=== PATIENT | male | born 1970 | race Caucasian/White ===

== ENCOUNTER 2018-02-22 20:27 | Emergency (ER) | payer BC ==
--- NOTE | 2018-02-22 20:56 | ERPHSYRPT ---
- History of Present Illness Time Seen by Provider: 02/22/18 20:42 Source: patient Exam Limitations: no limitations Patient Subjective Stated Complaint: pt is alert and oriented. pt is ambulatory. pt was brought in walking with a steady gait by law enforcement. he was driving and pulled over and blew 0.307. brought in for medical clearance. lung sounds clear. bowel sounds present x4. Triage Nursing Assessment: see above Physician History: 47-year-old white male brought by [facility] for medical clearance. Patient apparently blew greater than 0.3 on breathalyzer. Patient admits to drinking 12-13 beers. Denies illicit drug use. Past medical history denies. Past surgical history denies. Timing/Duration: today Severity: mild Modifying Factors: Improves With: nothing Associated Symptoms: No nausea, No vomiting, No abdominal pain, No shortness of breath, No heartburn, No diaphoresis, No cough, No chills, No chest pain, No fever, No headaches, No loss of appetite, No malaise, No rash, No syncope, No seizure, No weakness Allergies/Adverse Reactions: Penicillins Allergy (Verified 02/22/18 20:38) Hx Tetanus, Diphtheria Vaccination/Date Given: Yes Hx Influenza Vaccination/Date Given: No Hx Pneumococcal Vaccination/Date Given: No Immunizations Up to Date: Yes - Review of Systems Constitutional: No Fever, No Chills Eyes: No Symptoms Ears, Nose, & Throat: No Symptoms Respiratory: No Cough, No Dyspnea Cardiac: No Chest Pain, No Edema, No Syncope Abdominal/Gastrointestinal: No Abdominal Pain, No Nausea, No Vomiting, No Diarrhea Genitourinary Symptoms: No Dysuria Musculoskeletal: No Back Pain, No Neck Pain Skin: No Rash Psychological: Other (admits to drinking 12-13 beers today) Endocrine: No Symptoms All Other Systems: Reviewed and Negative - Past Medical History Pertinent Past Medical History: No - Past Surgical History Past Surgical History: No - Social History Smoking Status: Never smoker Drug Use: none - Nursing Vital Signs Nursing Vital Signs: Initial Vital Signs Temperature 98.0 F 02/22/18 20:30 Pulse Rate 119 H 02/22/18 20:30 Respiratory Rate 16 02/22/18 20:30 Blood Pressure 175/118 02/22/18 20:30 O2 Sat by Pulse Oximetry 95 02/22/18 20:30 Pain Scale Pain Intensity 0 - Physical Exam General Appearance: no apparent distress Eye Exam: PERRL/EOMI, eyes nml inspection Ears, Nose, Throat Exam: normal ENT inspection, TMs normal, pharynx normal, moist mucous membranes Neck Exam: normal inspection, non-tender, supple, full range of motion Respiratory Exam: normal breath sounds, lungs clear, No respiratory distress Cardiovascular Exam: regular rate/rhythm, normal heart sounds, normal peripheral pulses Gastrointestinal/Abdomen Exam: soft, normal bowel sounds, No tenderness, No mass Back Exam: normal inspection, normal range of motion, No CVA tenderness, No vertebral tenderness Extremity Exam: normal inspection, normal range of motion, pelvis stable Neurologic Exam: alert, oriented x 3, cooperative, 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 as tested, normal mood/affect, nml cerebellar function, nml station & gait, sensation nml, No motor deficits Skin Exam: normal color, warm, dry, No rash Lymphatic Exam: No adenopathy SpO2 Interpretation: normal (95%) SpO2: 95 Oxygen Delivery: Room Air - Course Nursing assessment & vital signs reviewed: Yes Ordered Tests: Active Orders 24 hr Category Date Time Status EKG-ER Only STAT Care 02/22/18 20:50 Active IV Insertion STAT Care 02/22/18 22:08 Active ACETAMINOPHEN Stat Lab 02/22/18 21:04 Completed CBC W DIFF Stat Lab 02/22/18 21:04 Completed CMP Stat Lab 02/22/18 21:04 Completed ETHYL ALCOHOL Stat Lab 02/22/18 21:04 Completed SALICYLATE Stat Lab 02/22/18 21:04 Completed UA W/RFX UR CULTURE Stat Lab 02/22/18 21:28 Completed Urine Triage Profile Stat Lab 02/22/18 21:28 Completed Medication Summary Generic Name Dose Route Start Last Admin Trade Name Freq PRN Reason Stop Dose Admin Sodium Chloride 1,000 mls @ 999 mls/hr 02/22/18 22:08 02/22/18 22:23 Sodium Chloride 0.9% 1000 Ml IV 02/22/18 23:08 Not Given .Q1H1M STA Discontinued Medications Generic Name Dose Route Start Last Admin Trade Name Freq PRN Reason Stop Dose Admin Sodium Chloride Confirm 02/22/18 22:09 Sodium Chloride 0.9% 1000 Ml Administered 02/22/18 22:10 Dose 1,000 mls @ ud .ROUTE .STK-MED ONE Thiamine HCl 100 mg 02/22/18 22:08 02/22/18 22:23 Thiamine 200 Mg/2 Ml IV 02/22/18 22:09 Not Given STAT ONE Lab/Rad Data: Laboratory Result Diagrams 02/22/18 21:04 02/22/18 21:04 Laboratory Results 02/22/18 02/22/18 02/22/18 Range/Units 21:28 21:28 21:04 WBC (4.0-10.5) K/mm3 RBC (4.1-5.6) M/mm3 Hgb (12.5-18.0) gm/dl Hct (42-50) % MCV (78-100) fl MCH (26-32) pg MCHC (32-36) g/dl RDW (11.5-14.0) % Plt Count (150-450) K/mm3 MPV (6-9.5) fl Gran % (36.0-66.0) % Eos # (Auto) (0-0.5) Absolute Lymphs (auto) (1.0-4.6) Absolute Monos (auto) (0.0-1.3) Lymphocytes % (24.0-44.0) % Monocytes % (0.0-12.0) % Eosinophils % (0.00-5.0) % Basophils % (0.0-0.4) % Absolute Granulocytes (1.4-6.9) Basophils # (0-0.4) Sodium (137-145) mmol/L Potassium (3.5-5.1) mmol/L Chloride (98-107) mmol/L Carbon Dioxide (22-30) mmol/L Anion Gap (5-15) MEQ/L BUN (9-20) mg/dL Creatinine (0.66-1.25) mg/dL Estimated GFR ML/MIN Glucose (74-106) mg/dL Calcium (8.4-10.2) mg/dL Total Bilirubin (0.2-1.3) mg/dL AST (17-59) U/L ALT (0-50) U/L Alkaline Phosphatase (38-126) U/L Serum Total Protein (6.3-8.2) g/dL Albumin (3.5-5.0) g/dL Ur Collection Type VOID Urine Color LT.YELLOW (YELLOW) Urine Appearance CLEAR (CLEAR) Urine pH 5.0 (5-6) Ur Specific [place] 1.010 (1.005-1.025) Urine Protein NEGATIVE (Negative) Urine Ketones NEGATIVE (NEGATIVE) Urine Blood NEGATIVE (0-5) Julio/ul Urine Nitrite NEGATIVE (NEGATIVE) Urine Bilirubin NEGATIVE (NEGATIVE) Urine Urobilinogen NORMAL (0-1) mg/dL Ur Leukocyte Esterase NEGATIVE (NEGATIVE) Urine Culture Reflexed NO (NO) Urine Glucose NEGATIVE (NEGATIVE) mg/dL Salicylates (2-20) mg/dL Urine Opiates Level NEGATIVE (NEGATIVE) Ur Methadone NEGATIVE (NEGATIVE) Acetaminophen (10-30) ug/ml Urine Barbiturates NEGATIVE (NEGATIVE) Ur Phencyclidine (PCP) NEGATIVE (NEGATIVE) Urine Amphetamine NEGATIVE (NEGATIVE) U Benzodiazepine Level NEGATIVE (NEGATIVE) Urine Cocaine NEGATIVE (NEGATIVE) Urine Marijuana (THC) NEGATIVE (NEGATIVE) Ethyl Alcohol 381 H (0-10) mg/dL Specimen Received 02/22/18 2130 02/22/18 02/22/18 Range/Units 21:04 21:04 WBC 7.0 (4.0-10.5) K/mm3 RBC 4.53 (4.1-5.6) M/mm3 Hgb 12.1 L (12.5-18.0) gm/dl Hct 36.8 L (42-50) % MCV 81.2 (78-100) fl MCH 26.7 (26-32) pg MCHC 32.9 (32-36) g/dl RDW 14.4 H (11.5-14.0) % Plt Count 305 (150-450) K/mm3 MPV 10.1 H (6-9.5) fl Gran % 38.8 (36.0-66.0) % Eos # (Auto) 0.23 (0-0.5) Absolute Lymphs (auto) 3.56 (1.0-4.6) Absolute Monos (auto) 0.46 (0.0-1.3) Lymphocytes % 50.9 H (24.0-44.0) % Monocytes % 6.6 (0.0-12.0) % Eosinophils % 3.3 (0.00-5.0) % Basophils % 0.4 (0.0-0.4) % Absolute Granulocytes 2.71 (1.4-6.9) Basophils # 0.03 (0-0.4) Sodium 139 (137-145) mmol/L Potassium 4.3 (3.5-5.1) mmol/L Chloride 100 (98-107) mmol/L Carbon Dioxide 24 (22-30) mmol/L Anion Gap 19.9 H (5-15) MEQ/L BUN 11 (9-20) mg/dL Creatinine 0.78 (0.66-1.25) mg/dL Estimated GFR > 60.0 ML/MIN Glucose 100 (74-106) mg/dL Calcium 8.5 (8.4-10.2) mg/dL Total Bilirubin 0.90 (0.2-1.3) mg/dL AST 23 (17-59) U/L ALT 15 (0-50) U/L Alkaline Phosphatase 136 H (38-126) U/L Serum Total Protein 7.1 (6.3-8.2) g/dL Albumin 4.4 (3.5-5.0) g/dL Ur Collection Type Urine Color (YELLOW) Urine Appearance (CLEAR) Urine pH (5-6) Ur Specific [place] (1.005-1.025) Urine Protein (Negative) Urine Ketones (NEGATIVE) Urine Blood (0-5) Julio/ul Urine Nitrite (NEGATIVE) Urine Bilirubin (NEGATIVE) Urine Urobilinogen (0-1) mg/dL Ur Leukocyte Esterase (NEGATIVE) Urine Culture Reflexed (NO) Urine Glucose (NEGATIVE) mg/dL Salicylates < 1.0 L (2-20) mg/dL Urine Opiates Level (NEGATIVE) Ur Methadone (NEGATIVE) Acetaminophen < 10 L (10-30) ug/ml Urine Barbiturates (NEGATIVE) Ur Phencyclidine (PCP) (NEGATIVE) Urine Amphetamine (NEGATIVE) U Benzodiazepine Level (NEGATIVE) Urine Cocaine (NEGATIVE) Urine Marijuana (THC) (NEGATIVE) Ethyl Alcohol (0-10) mg/dL Specimen Received - Progress Progress: improved Progress Note: 02/22/18 20:55 This is a 47-year-old white male brought by the [facility] with complaints of elevated breath alcohol test. Patient is alert he is oriented unfortunately her blood pressure on the patient is 175/118. Will go ahead and obtain basic workup including CBC CMP UDS blood alcohol level EKG. 02/22/18 22:[id number] white male brought by the [facility] with complaint of elevated breath alcohol test. Patient was noted to have a blood pressure of 175/118 on arrival. Labs including CBC CMP blood alcohol level salicylate level acetaminophen level are ordered. UDS is ordered. EKG was ordered. Patient refused EKG. IV normal saline was ordered for the patient 1 L. Thiamine 100 mg IV was ordered. Patient refused IV normal saline, patient refused thiamine. Patient in no acute distress blood pressure is stable blood pressure now 139/80. Unfortunately blood alcohol level is 380 however patient is alert oriented and in no acute distress. He is demanding to sign AMA for iv fluids and thiamine. Will go ahead and sign patient out AMA patient is stable for group home. 02/22/18 22:31 - Departure Time of Disposition: 22:27 Departure Disposition: Home Clinical Impression: Alcohol intoxication Qualifiers: Complication of substance-induced condition: uncomplicated Qualified Code(s): F10.920 - Alcohol use, unspecified with intoxication, uncomplicated Condition: Fair Critical Care Time: No Referrals: MERLIN LIU [Primary Care Provider] - Additional Instructions: Return home. No driving. Do not drink any more alcohol tonight. Follow-up with your family doctor. Return for acute distress or for severe symptoms.
[2018-02-22 21:07] LABS: BASOPHIL % 0.4 % (0.0-0.4); Basophil (Absolute #) 0.03 (0-0.4); Eosinophil % 3.3 % (0.00-5.0); Eosinophil (Absolute #) 0.23 (0-0.5); Granulocyte Absolute (ANC) 2.71 (1.4-6.9); Granulocytes % 38.8 % (36.0-66.0); Hematocrit 36.8 % (42-50); Hemoglobin 12.1 gm/dl (12.5-18.0); Lymphocyte (Absolute #) 3.56 (1.0-4.6); Lymphocytes % 50.9 % (24.0-44.0); Mean Cell Volume 81.2 fl (78-100); Mean Corpuscular Hemoglobin 26.7 pg (26-32); Mean Corpuscular Hgb Concent. 32.9 g/dl (32-36); Mean Platelet Volume 10.1 fl (6-9.5); Monocyte (Absolute #) 0.46 (0.0-1.3); Monocytes % 6.6 % (0.0-12.0); Platelet Count 305 K/mm3 (150-450); Red Blood Count 4.53 M/mm3 (4.1-5.6); Red Cell Distribution Width 14.4 % (11.5-14.0)
[2018-02-22 21:25] LABS: ALBUMIN 4.4 g/dL (3.5-5.0); ALKALINE PHOSPHATASE 136 U/L (38-126); ANION GAP 19.9 MEQ/L (5-15); BLOOD UREA NITROGEN 11 mg/dL (9-20); CHLORIDE 100 mmol/L (98-107); Calcium 8.5 mg/dL (8.4-10.2); Carbon Dioxide 24 mmol/L (22-30); Creatinine 1 0.78 mg/dL (0.66-1.25); Glucose 100 mg/dL (74-106); Potassium 4.3 mmol/L (3.5-5.1); SGOT/AST 23 U/L (17-59); SGPT/ALT 15 U/L (0-50); SODIUM 139 mmol/L (137-145); Total Protein 7.1 g/dL (6.3-8.2)
[2018-02-22 21:27] LABS: ACETAMINOPHEN < 10 ug/ml (10-30); SALICYLATE < 1.0 mg/dL (2-20)
[2018-02-22 21:31] LABS: Appearance CLEAR (CLEAR); Bilirubin NEGATIVE (NEGATIVE); Blood NEGATIVE Ery/ul (0-5); Glucose NEGATIVE (NEGATIVE); Ketones NEGATIVE (NEGATIVE); Leukocyte Esterase NEGATIVE (NEGATIVE); Nitrite NEGATIVE (NEGATIVE); Protein,Urine Dip NEGATIVE (Negative); Urobilinogen NORMAL mg/dL (0-1)
[2018-02-22 21:47] LABS: Amphetamine,Urine NEGATIVE (NEGATIVE); Barbiturate,Urine NEGATIVE (NEGATIVE); Benzodiazepine,Urine NEGATIVE (NEGATIVE); Cocaine,Urine NEGATIVE (NEGATIVE); Methadone,Urine NEGATIVE (NEGATIVE); Opiate,Urine NEGATIVE (NEGATIVE); PCP,Urine NEGATIVE (NEGATIVE); THC,Urine NEGATIVE (NEGATIVE)
[2018-02-22] MEDS ORDERED: THIAMINE 200 MG/2 ML IV ONE (22:08)
[2018-02-22] MEDS ORDERED: Sodium Chloride 0.9% 1000 ML 1,000 ML IV STA (22:08)
[2018-02-22] MEDS ORDERED: Sodium Chloride 0.9% 1000 ML 1,000 ML ONE (22:09)
[2018-02-22 22:39] VITALS: BP 139/80; PULSE 79; O2SAT 98
== END 2018-02-22 22:38 | disposition home or self-care (01) ==
LOC: ED 20:27
DX: F10.129 Alcohol abuse with intoxication, unspecified (principal)
CPT/HCPCS: 36000; 36415; 80053; 80307; 81002; 85025; 99284; G0481; G0480

== ENCOUNTER 2019-08-26 17:57 | Emergency (ER) | payer BC, MEDICAID ==
[2019-08-26] MEDS ORDERED: Sodium Chloride 0.9% 1000 ML 1,000 ML IV STA ×2 (18:19→21:15)
[2019-08-26] MEDS ORDERED: Sodium Chloride 0.9% 1000 ML 1,000 ML ONE ×2 (18:27→21:28)
[2019-08-26 18:46] LABS: INR 1.03 (0.8-3.0); PROTIME 11.7 SECONDS (8.83-12.87)
[2019-08-26 18:50] LABS: Absolute Neutrophil Ct (ANC) 3.44 (1.4-6.9); BASOPHIL % 0.3 % (0.0-0.4); Basophil (Absolute #) 0.02 (0-0.4); Eosinophil % 0.5 % (0.00-5.0); Eosinophil (Absolute #) 0.03 (0-0.5); Hemoglobin 10.7 gm/dl (12.5-18.0); Lymphocyte (Absolute #) 1.25 (1.0-4.6); Lymphocytes % 21.1 % (24.0-44.0); Mean Cell Volume 80.7 fl (78-100); Mean Corpuscular Hgb Concent. 29.7 g/dl (32-36); Mean Platelet Volume 10.8 fl (6-9.5); Monocyte (Absolute #) 1.19 (0.0-1.3); Monocytes % 20.1 % (0.0-12.0); Platelet Count 312 K/mm3 (150-450); Red Blood Count 4.46 M/mm3 (4.1-5.6); Red Cell Distribution Width 21.4 % (11.5-14.0); White Blood Count 5.9 K/mm3 (4.0-10.5)
[2019-08-26 18:51] LABS: ALBUMIN 4.6 g/dL (3.5-5.0); ALKALINE PHOSPHATASE 92 U/L (38-126); AMYLASE 46 U/L (30-110); BLOOD UREA NITROGEN 13 mg/dL (9-20); CHLORIDE 100 mmol/L (98-107); Calcium 9.9 mg/dL (8.4-10.2); Carbon Dioxide 26 mmol/L (22-30); Creatinine 1 1.27 mg/dL (0.66-1.25); ETHYL ALCOHOL < 10 mg/dL (0-10); Glucose 111 mg/dL (74-106); LIPASE 68 U/L (23-300); Potassium 3.3 mmol/L (3.5-5.1); SGOT/AST 62 U/L (17-59); SGPT/ALT 55 U/L (0-50); SODIUM 140 mmol/L (137-145); Total Protein 8.2 g/dL (6.3-8.2)
[2019-08-26 19:01] LABS: MAGNESIUM 1.9 mg/dL (1.6-2.3)
--- NOTE | 2019-08-26 19:01 | ERPHSYRPT ---
- History of Present Illness Time Seen by Provider: 08/26/19 18:20 Source: patient Exam Limitations: no limitations Patient Subjective Stated Complaint: pt was sent over from [facility] for fast heart rate, and was sent to er.pt states she has been going on for 6 days now getting worse, no pain Triage Nursing Assessment: pt alert, resp easy, skin w/d/p. and soft, no edema, chest clear, he states he has been getting lighheaded off and on for the last month, Physician History: Patient has been having dizziness and heart palpitations for the past month. Patient had similar symptoms two years ago, but he did not have any evaluation as he did not want the stress test at that time. Timing/Duration: week(s) (4) Activities at Onset: none Quality: other (palpitations) Location: other Chest Pain Radiation: no radiation Severity of Pain-Max: moderate Severity of Pain-Current: moderate Modifying Factors: Improves With: change in position, other (standing). Worsens With: breathing, coughing, defecating, eating, exertion, lying down, morphine, movement, nitroglycerin, oxygen, palpation, rest, aspirin, sitting up Nitro Today/Relief: no nitro taken today Aspirin Treatment Today: no aspirin today Associated Symptoms: No nausea, No vomiting, No abdominal pain, No shortness of breath, No heartburn, No diaphoresis, No cough, No chills, No chest pain, No fever, No headaches, No loss of appetite, No malaise, No rash, No syncope, No seizure, No weakness Prior Chest Pain/Cardiac Workup: no prior chest pain, no prior cardiac workup Allergies/Adverse Reactions: Penicillins Allergy (Verified 08/26/19 18:21) Home Medications: No Reportable Medications [No Reported Medications] 08/26/19 [History] Hx Tetanus, Diphtheria Vaccination/Date Given: Yes Hx Influenza Vaccination/Date Given: No Hx Pneumococcal Vaccination/Date Given: No Immunizations Up to Date: Yes - Review of Systems Constitutional: No Fever, No Chills Eyes: No Eye Pain, No Eye Redness, No Vision Changes Ears, Nose, & Throat: No Mouth Pain, No Mouth Swelling, No Painful Swallowing Respiratory: No Cough, No Cyanosis, No Dyspnea Cardiac: Palpitations, No Chest Pain, No Edema, No Syncope Abdominal/Gastrointestinal: No Abdominal Pain, No Nausea, No Vomiting, No Diarrhea Genitourinary Symptoms: No Dysuria, No Hematuria, No Flank Pain Musculoskeletal: No Back Pain, No Neck Pain, No Fall, No Joint Swelling, No Myalgias Skin: No Rash Neurological: No Dizziness, No Focal Weakness, No Headache, No Parasthesia, No Sensory Changes, No Tremors Endocrine: No Excessive Sweating Hematologic/Lymphatic: No Easy Bleeding, No Easy Bruising All Other Systems: Reviewed and Negative - Past Medical History Pertinent Past Medical History: No Other Medical History: fast heart rate - Past Surgical History Past Surgical History: Yes Gastrointestinal: Other Other Surgical History: gastric bypass - Social History Smoking Status: Never smoker Exposure to second hand smoke: No Drug Use: none Patient Lives Alone: Yes - Nursing Vital Signs Nursing Vital Signs: Initial Vital Signs Temperature 98.9 F 08/26/19 18:05 Pulse Rate 127 H 08/26/19 18:05 Blood Pressure 164/119 08/26/19 18:05 O2 Sat by Pulse Oximetry 99 08/26/19 18:05 Pain Scale Pain Intensity 0 - Physical Exam General Appearance: no apparent distress, alert Eye Exam: PERRL/EOMI, eyes nml inspection, No scleral icterus, No pale conjunctivae Ears, Nose, Throat Exam: normal ENT inspection, TMs normal, pharynx normal, moist mucous membranes Neck Exam: normal inspection, non-tender, supple, full range of motion, No meningismus Respiratory Exam: normal breath sounds, lungs clear, No respiratory distress, No accessory muscle use, No crackles/rales, No wheezing Cardiovascular Exam: regular rate/rhythm, normal heart sounds, normal peripheral pulses, capillary refill <2 sec, No edema Gastrointestinal/Abdomen Exam: soft, normal bowel sounds, No tenderness, No distention, No mass, No guarding, No rebound, No hernia Back Exam: normal inspection, No CVA tenderness, No vertebral tenderness Extremity Exam: normal inspection, normal range of motion, pelvis stable, No calf tenderness, No tyler's sign, No pedal edema, No swelling Neurologic Exam: alert, oriented x 3, cooperative, 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, normal mood/affect, sensation nml, No motor deficits Skin Exam: normal color, warm, dry Lymphatic Exam: No adenopathy SpO2 Interpretation: normal SpO2: 99 O2 Delivery: Room Air - Course Nursing assessment & vital signs reviewed: Yes EKG Interpreted by Me: RATE (98), Sinus Rhythm, NORMAL AXIS, NORMAL INTERVALS, NORMAL QRS, NORMAL ST-T, Other (negaitve previous EKG for comparison) - Radiology Exams Chest X-ray Interpretation: Interpreted by me, Reviewed by me, No Fracture, No Pneumonia, No Pneumothorax, Nml Heart Size, No Infiltrates, Nml Mediastinum, Nml Soft Tissues Ordered Tests: Active Orders 24 hr Category Date Time Status EKG-ER Only STAT Care 08/26/19 18:19 Active IV Insertion STAT Care 08/26/19 18:19 Active CHEST 1 VIEW (PORTABLE) Stat Exams 08/26/19 18:19 Taken AMYLASE Stat Lab 08/26/19 18:30 Completed BMP Stat Lab 08/26/19 Completed CBC W DIFF Stat Lab 08/26/19 18:30 Completed CMP Stat Lab 08/26/19 18:30 Completed D-DIMER QUANTITATION Stat Lab 08/26/19 19:03 Completed ETHYL ALCOHOL Stat Lab 08/26/19 18:30 Completed LIPASE Stat Lab 08/26/19 18:30 Completed Lactic Acid Stat Lab 08/26/19 18:30 Completed MAGNESIUM Routine Lab 08/26/19 18:30 Completed PROTIME WITH INR Stat Lab 08/26/19 18:30 Completed TROPONIN Q3H Lab 08/26/19 18:30 Completed TROPONIN Q3H Lab 08/26/19 21:26 Completed TROPONIN Q3H Lab 08/27/19 00:30 Ordered TROPONIN Q3H Lab 08/27/19 03:30 Ordered TROPONIN Q3H Lab 08/27/19 06:30 Ordered UA W/RFX UR CULTURE Stat Lab 08/26/19 22:20 Completed Urine Triage Profile Stat Lab 08/26/19 22:20 Completed Medication Summary Discontinued Medications Generic Name Dose Route Start Last Admin Trade Name Freq PRN Reason Stop Dose Admin Sodium Chloride 1,000 mls @ 999 mls/hr 08/26/19 18:19 08/26/19 20:13 Sodium Chloride 0.9% 1000 Ml IV 08/26/19 19:19 Infused .Q1H1M STA Infusion Sodium Chloride Confirm 08/26/19 18:27 Sodium Chloride 0.9% 1000 Ml Administered 08/26/19 18:28 Dose 1,000 mls @ ud .ROUTE .STK-MED ONE Sodium Chloride 1,000 mls @ 999 mls/hr 08/26/19 21:15 08/26/19 21:29 Sodium Chloride 0.9% 1000 Ml IV 08/26/19 22:15 999 mls/hr .Q1H1M STA Administration Sodium Chloride Confirm 08/26/19 21:28 Sodium Chloride 0.9% 1000 Ml Administered 08/26/19 21:29 Dose 1,000 mls @ ud .ROUTE .STK-MED ONE Potassium Chloride 40 meq 08/26/19 20:48 08/26/19 20:57 Klor Con 10 Meq PO 08/26/19 20:49 40 meq STAT ONE Administration Potassium Chloride Confirm 08/26/19 20:56 Klor Con 10 Meq Administered 08/26/19 20:57 Dose 40 meq PO .STK-MED ONE Lab/Rad Data: Laboratory Result Diagrams 08/26/19 18:30 08/26/19 Unknown Laboratory Results 08/26/19 08/26/19 08/26/19 Range/Units Unknown 22:20 22:20 WBC (4.0-10.5) K/mm3 RBC (4.1-5.6) M/mm3 Hgb (12.5-18.0) gm/dl Hct (42-50) % MCV (78-100) fl MCH (26-32) pg MCHC (32-36) g/dl RDW (11.5-14.0) % Plt Count (150-450) K/mm3 MPV (6-9.5) fl Gran % (36.0-66.0) % Eos # (Auto) (0-0.5) Absolute Lymphs (auto) (1.0-4.6) Absolute Monos (auto) (0.0-1.3) Lymphocytes % (24.0-44.0) % Monocytes % (0.0-12.0) % Eosinophils % (0.00-5.0) % Basophils % (0.0-0.4) % Absolute Granulocytes (1.4-6.9) Basophils # (0-0.4) PT (8.83-12.87) SECONDS INR (0.8-3.0) D-Dimer (215-500) ng/mL Sodium 138 (137-145) mmol/L Potassium 3.5 (3.5-5.1) mmol/L Chloride 99 (98-107) mmol/L Carbon Dioxide 28 (22-30) mmol/L Anion Gap 14.9 (5-15) MEQ/L BUN 12 (9-20) mg/dL Creatinine 1.17 (0.66-1.25) mg/dL Estimated GFR > 60.0 ML/MIN Glucose 103 (74-106) mg/dL Lactic Acid (0.4-2.0) Calcium 9.2 (8.4-10.2) mg/dL Magnesium (1.6-2.3) mg/dL Total Bilirubin (0.2-1.3) mg/dL AST (17-59) U/L ALT (0-50) U/L Alkaline Phosphatase (38-126) U/L Troponin I (0.000-0.034) ng/mL Serum Total Protein (6.3-8.2) g/dL Albumin (3.5-5.0) g/dL Amylase (30-110) U/L Lipase (23-300) U/L Urine Color OMI (YELLOW) Urine Appearance CLOUDY (CLEAR) Urine pH 5.0 (5-6) Ur Specific [place] 1.024 (1.005-1.025) Urine Protein NEGATIVE (Negative) Urine Ketones TRACE (NEGATIVE) Urine Blood NEGATIVE (0-5) Julio/ul Urine Nitrite NEGATIVE (NEGATIVE) Urine Bilirubin NEGATIVE (NEGATIVE) Urine Urobilinogen 2 (0-1) mg/dL Ur Leukocyte Esterase NEGATIVE (NEGATIVE) Urine WBC (Auto) 3-5 (0-5) /HPF Urine RBC (Auto) NONE (0-2) /HPF U Hyaline Cast (Auto) 3-5 (0-2) /LPF U Epithel Cells (Auto) NONE (FEW) /HPF Urine Bacteria (Auto) RARE (NEGATIVE) /HPF Amorphous Crystals FEW (NEGATIVE) /HPF Urine Mucus (Auto) SLIGHT (NEGATIVE) /HPF Urine Culture Reflexed NO (NO) Urine Glucose NEGATIVE (NEGATIVE) mg/dL Urine Opiates Level NEGATIVE (NEGATIVE) Ur Methadone NEGATIVE (NEGATIVE) Urine Barbiturates NEGATIVE (NEGATIVE) Ur Phencyclidine (PCP) NEGATIVE (NEGATIVE) Urine Amphetamine NEGATIVE (NEGATIVE) U Benzodiazepine Level NEGATIVE (NEGATIVE) Urine Cocaine NEGATIVE (NEGATIVE) Urine Marijuana (THC) NEGATIVE (NEGATIVE) Ethyl Alcohol (0-10) mg/dL 1208/26/19 08/26/19 Range/Units 21:26 19:03 18:30 WBC (4.0-10.5) K/mm3 RBC (4.1-5.6) M/mm3 Hgb (12.5-18.0) gm/dl Hct (42-50) % MCV (78-100) fl MCH (26-32) pg MCHC (32-36) g/dl RDW (11.5-14.0) % Plt Count (150-450) K/mm3 MPV (6-9.5) fl Gran % (36.0-66.0) % Eos # (Auto) (0-0.5) Absolute Lymphs (auto) (1.0-4.6) Absolute Monos (auto) (0.0-1.3) Lymphocytes % (24.0-44.0) % Monocytes % (0.0-12.0) % Eosinophils % (0.00-5.0) % Basophils % (0.0-0.4) % Absolute Granulocytes (1.4-6.9) Basophils # (0-0.4) PT (8.83-12.87) SECONDS INR (0.8-3.0) D-Dimer 450 (215-500) ng/mL Sodium (137-145) mmol/L Potassium (3.5-5.1) mmol/L Chloride (98-107) mmol/L Carbon Dioxide (22-30) mmol/L Anion Gap (5-15) MEQ/L BUN (9-20) mg/dL Creatinine (0.66-1.25) mg/dL Estimated GFR ML/MIN Glucose (74-106) mg/dL Lactic Acid (0.4-2.0) Calcium (8.4-10.2) mg/dL Magnesium 1.9 (1.6-2.3) mg/dL Total Bilirubin (0.2-1.3) mg/dL AST (17-59) U/L ALT (0-50) U/L Alkaline Phosphatase (38-126) U/L Troponin I < 0.012 < 0.012 (0.000-0.034) ng/mL Serum Total Protein (6.3-8.2) g/dL Albumin (3.5-5.0) g/dL Amylase (30-110) U/L Lipase (23-300) U/L Urine Color (YELLOW) Urine Appearance (CLEAR) Urine pH (5-6) Ur Specific [place] (1.005-1.025) Urine Protein (Negative) Urine Ketones (NEGATIVE) Urine Blood (0-5) Julio/ul Urine Nitrite (NEGATIVE) Urine Bilirubin (NEGATIVE) Urine Urobilinogen (0-1) mg/dL Ur Leukocyte Esterase (NEGATIVE) Urine WBC (Auto) (0-5) /HPF Urine RBC (Auto) (0-2) /HPF U Hyaline Cast (Auto) (0-2) /LPF U Epithel Cells (Auto) (FEW) /HPF Urine Bacteria (Auto) (NEGATIVE) /HPF Amorphous Crystals (NEGATIVE) /HPF Urine Mucus (Auto) (NEGATIVE) /HPF Urine Culture Reflexed (NO) Urine Glucose (NEGATIVE) mg/dL Urine Opiates Level (NEGATIVE) Ur Methadone (NEGATIVE) Urine Barbiturates (NEGATIVE) Ur Phencyclidine (PCP) (NEGATIVE) Urine Amphetamine (NEGATIVE) U Benzodiazepine Level (NEGATIVE) Urine Cocaine (NEGATIVE) Urine Marijuana (THC) (NEGATIVE) Ethyl Alcohol (0-10) mg/dL 08/26/19 08/26/19 08/26/19 Range/Units 18:30 18:30 18:30 WBC (4.0-10.5) K/mm3 RBC (4.1-5.6) M/mm3 Hgb (12.5-18.0) gm/dl Hct (42-50) % MCV (78-100) fl MCH (26-32) pg MCHC (32-36) g/dl RDW (11.5-14.0) % Plt Count (150-450) K/mm3 MPV (6-9.5) fl Gran % (36.0-66.0) % Eos # (Auto) (0-0.5) Absolute Lymphs (auto) (1.0-4.6) Absolute Monos (auto) (0.0-1.3) Lymphocytes % (24.0-44.0) % Monocytes % (0.0-12.0) % Eosinophils % (0.00-5.0) % Basophils % (0.0-0.4) % Absolute Granulocytes (1.4-6.9) Basophils # (0-0.4) PT 11.7 (8.83-12.87) SECONDS INR 1.03 (0.8-3.0) D-Dimer (215-500) ng/mL Sodium 140 (137-145) mmol/L Potassium 3.3 L (3.5-5.1) mmol/L Chloride 100 (98-107) mmol/L Carbon Dioxide 26 (22-30) mmol/L Anion Gap 17.0 H (5-15) MEQ/L BUN 13 (9-20) mg/dL Creatinine 1.27 H (0.66-1.25) mg/dL Estimated GFR > 60.0 ML/MIN Glucose 111 H (74-106) mg/dL Lactic Acid 1.5 (0.4-2.0) Calcium 9.9 (8.4-10.2) mg/dL Magnesium (1.6-2.3) mg/dL Total Bilirubin 1.20 (0.2-1.3) mg/dL AST 62 H (17-59) U/L ALT 55 H (0-50) U/L Alkaline Phosphatase 92 (38-126) U/L Troponin I (0.000-0.034) ng/mL Serum Total Protein 8.2 (6.3-8.2) g/dL Albumin 4.6 (3.5-5.0) g/dL Amylase 46 (30-110) U/L Lipase 68 (23-300) U/L Urine Color (YELLOW) Urine Appearance (CLEAR) Urine pH (5-6) Ur Specific [place] (1.005-1.025) Urine Protein (Negative) Urine Ketones (NEGATIVE) Urine Blood (0-5) Julio/ul Urine Nitrite (NEGATIVE) Urine Bilirubin (NEGATIVE) Urine Urobilinogen (0-1) mg/dL Ur Leukocyte Esterase (NEGATIVE) Urine WBC (Auto) (0-5) /HPF Urine RBC (Auto) (0-2) /HPF U Hyaline Cast (Auto) (0-2) /LPF U Epithel Cells (Auto) (FEW) /HPF Urine Bacteria (Auto) (NEGATIVE) /HPF Amorphous Crystals (NEGATIVE) /HPF Urine Mucus (Auto) (NEGATIVE) /HPF Urine Culture Reflexed (NO) Urine Glucose (NEGATIVE) mg/dL Urine Opiates Level (NEGATIVE) Ur Methadone (NEGATIVE) Urine Barbiturates (NEGATIVE) Ur Phencyclidine (PCP) (NEGATIVE) Urine Amphetamine (NEGATIVE) U Benzodiazepine Level (NEGATIVE) Urine Cocaine (NEGATIVE) Urine Marijuana (THC) (NEGATIVE) Ethyl Alcohol < 10 (0-10) mg/dL 08/26/19 Range/Units 18:30 WBC 5.9 (4.0-10.5) K/mm3 RBC 4.46 (4.1-5.6) M/mm3 Hgb 10.7 L (12.5-18.0) gm/dl Hct 36.0 L (42-50) % MCV 80.7 (78-100) fl MCH 24.0 L (26-32) pg MCHC 29.7 L (32-36) g/dl RDW 21.4 H (11.5-14.0) % Plt Count 312 (150-450) K/mm3 MPV 10.8 H (6-9.5) fl Gran % 58.0 (36.0-66.0) % Eos # (Auto) 0.03 (0-0.5) Absolute Lymphs (auto) 1.25 (1.0-4.6) Absolute Monos (auto) 1.19 (0.0-1.3) Lymphocytes % 21.1 L (24.0-44.0) % Monocytes % 20.1 H (0.0-12.0) % Eosinophils % 0.5 (0.00-5.0) % Basophils % 0.3 (0.0-0.4) % Absolute Granulocytes 3.44 (1.4-6.9) Basophils # 0.02 (0-0.4) PT (8.83-12.87) SECONDS INR (0.8-3.0) D-Dimer (215-500) ng/mL Sodium (137-145) mmol/L Potassium (3.5-5.1) mmol/L Chloride (98-107) mmol/L Carbon Dioxide (22-30) mmol/L Anion Gap (5-15) MEQ/L BUN (9-20) mg/dL Creatinine (0.66-1.25) mg/dL Estimated GFR ML/MIN Glucose (74-106) mg/dL Lactic Acid (0.4-2.0) Calcium (8.4-10.2) mg/dL Magnesium (1.6-2.3) mg/dL Total Bilirubin (0.2-1.3) mg/dL AST (17-59) U/L ALT (0-50) U/L Alkaline Phosphatase (38-126) U/L Troponin I (0.000-0.034) ng/mL Serum Total Protein (6.3-8.2) g/dL Albumin (3.5-5.0) g/dL Amylase (30-110) U/L Lipase (23-300) U/L Urine Color (YELLOW) Urine Appearance (CLEAR) Urine pH (5-6) Ur Specific [place] (1.005-1.025) Urine Protein (Negative) Urine Ketones (NEGATIVE) Urine Blood (0-5) Julio/ul Urine Nitrite (NEGATIVE) Urine Bilirubin (NEGATIVE) Urine Urobilinogen (0-1) mg/dL Ur Leukocyte Esterase (NEGATIVE) Urine WBC (Auto) (0-5) /HPF Urine RBC (Auto) (0-2) /HPF U Hyaline Cast (Auto) (0-2) /LPF U Epithel Cells (Auto) (FEW) /HPF Urine Bacteria (Auto) (NEGATIVE) /HPF Amorphous Crystals (NEGATIVE) /HPF Urine Mucus (Auto) (NEGATIVE) /HPF Urine Culture Reflexed (NO) Urine Glucose (NEGATIVE) mg/dL Urine Opiates Level (NEGATIVE) Ur Methadone (NEGATIVE) Urine Barbiturates (NEGATIVE) Ur Phencyclidine (PCP) (NEGATIVE) Urine Amphetamine (NEGATIVE) U Benzodiazepine Level (NEGATIVE) Urine Cocaine (NEGATIVE) Urine Marijuana (THC) (NEGATIVE) Ethyl Alcohol (0-10) mg/dL - Progress Progress: improved Air Movement: good Progress Note: 08/26/19 21:02 Patient has remained in sinus rhythm 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 Patient has remained in sinus rhythm throughout his time in the emergency department. 08/26/19 22:58 patient had improvement of his palpitations and dizziness with IV hydration and his tachycardia resolved and his labwork improving with IV hydration and his potassium corrected with oral supplementation. patient had no serious arrhythmias or ectopy or signs of ischemia lab work or on flotation operator the records the patient be admitted for further evaluation, testing and treatment and had no signs of heart failure from his palpitations. Blood Culture(s) Obtained: No Antibiotics given: No Counseled pt/family regarding: lab results, diagnosis, need for follow-up, rad results - Departure Departure Disposition: Home Clinical Impression: Palpitation, Dizziness, Elevated blood pressure reading without diagnosis of hypertension, Hypokalemia Condition: Good Critical Care Time: No Referrals: MERLIN LIU [Primary Care Provider] - 08/27/19 Instructions: Palpitations (DC), Dizziness, Nonvertigo, (DC) Additional Instructions: Return immediately back to the emergency room if you have any acute dizziness, palpitations, chest pain, abdominal pain, nausea, vomiting, back pain, fevers or any other concerning signs or symptoms that were not present during today's return visit for immediate reevaluation in the emergency department.
[2019-08-26 19:08] LABS: TROPONIN < 0.012 ng/mL (0.000-0.034)
[2019-08-26] MEDS ORDERED: Klor Con 10 MEQ PO ONE ×2 (20:48→20:56)
[2019-08-26 21:54] LABS: ANION GAP 14.9 MEQ/L (5-15); BLOOD UREA NITROGEN 12 mg/dL (9-20); CHLORIDE 99 mmol/L (98-107); Calcium 9.2 mg/dL (8.4-10.2); Carbon Dioxide 28 mmol/L (22-30); Creatinine 1 1.17 mg/dL (0.66-1.25); Glucose 103 mg/dL (74-106); Potassium 3.5 mmol/L (3.5-5.1); SODIUM 138 mmol/L (137-145)
[2019-08-26 22:35] LABS: Amourphous Crystal FEW /HPF (NEGATIVE); Appearance CLOUDY (CLEAR); Bacteria RARE /HPF (NEGATIVE); Bilirubin NEGATIVE (NEGATIVE); Blood NEGATIVE Ery/ul (0-5); Glucose NEGATIVE (NEGATIVE); Ketones TRACE (NEGATIVE); Leukocyte Esterase NEGATIVE (NEGATIVE); Mucus SLIGHT /HPF (NEGATIVE); Nitrite NEGATIVE (NEGATIVE); Protein,Urine Dip NEGATIVE (Negative); Specific Gravity 1.024 (1.005-1.025); Urobilinogen 2 mg/dL (0-1)
[2019-08-26 22:39] LABS: Amphetamine,Urine NEGATIVE (NEGATIVE); Barbiturate,Urine NEGATIVE (NEGATIVE); Benzodiazepine,Urine NEGATIVE (NEGATIVE); Cocaine,Urine NEGATIVE (NEGATIVE); Methadone,Urine NEGATIVE (NEGATIVE); Opiate,Urine NEGATIVE (NEGATIVE); PCP,Urine NEGATIVE (NEGATIVE); THC,Urine NEGATIVE (NEGATIVE)
[2019-08-26 22:55] VITALS: BP 132/90; PULSE 89
[2019-08-26 22:58] VITALS: O2SAT 99
--- NOTE | 2019-08-27 09:09 | XRAY ---
Indication: Dizziness. Comparison: None Portable chest demonstrates normal heart and lungs. Bony thorax intact.
== END 2019-08-26 23:11 | disposition home or self-care (01) ==
LOC: ED 17:57
DX: R00.2 Palpitations (principal); R42 Dizziness and giddiness; R03.0 Elevated blood-pressure reading, without diagnosis of hypertension; E87.6 Hypokalemia; Z98.84 Bariatric surgery status
CPT/HCPCS: 36000; 36415; 71045; 80048; 80053; 80307; 81001; 82150; 83605; 83690; 83735; 84484; 85025; 85379; 85610; 93005; 96360; 96361; 99284; A9270-GY; G0480

== ENCOUNTER 2021-03-13 20:58 | Emergency (ER) | payer BC ==
[2021-03-13] MEDS ORDERED: CARDIZEM DRIP 100 MG/100 ML D5W 100 ML IV PRN (21:01)
[2021-03-13] MEDS ORDERED: Sodium Chloride 0.9% 1000 ML 1,000 ML IV SCH (21:15)
[2021-03-13] MEDS ORDERED: Sodium Chloride 0.9% 1000 ML 1,000 ML ONE (21:18)
[2021-03-13 21:22] VITALS: O2SAT 99
[2021-03-13] MEDS ORDERED: CARDIZEM DRIP 100 MG/100 ML D5W 100 ML IV ONE (21:25)
[2021-03-13 21:28] LABS: Absolute Neutrophil Ct (ANC) 3.52 (1.4-6.9); BASOPHIL % 0.5 % (0.0-0.4); Basophil (Absolute #) 0.03 (0-0.4); Eosinophil % 1.3 % (0.00-5.0); Eosinophil (Absolute #) 0.08 (0-0.5); Hematocrit 33.7 % (42-50); Hemoglobin 9.4 gm/dl (12.5-18.0); Lymphocyte (Absolute #) 1.92 (1.0-4.6); Lymphocytes % 31.5 % (24.0-44.0); Mean Cell Volume 73.4 fl (78-100); Mean Corpuscular Hemoglobin 20.5 pg (26-32); Mean Corpuscular Hgb Concent. 27.9 g/dl (32-36); Mean Platelet Volume 11.7 fl (7.5-11.0); Monocyte (Absolute #) 0.54 (0.0-1.3); Monocytes % 8.9 % (0.0-12.0); Neutrophil % 57.8 % (36.0-66.0); Platelet Count 325 K/mm3 (150-450); Red Blood Count 4.59 M/mm3 (4.1-5.6); Red Cell Distribution Width 19.3 % (11.5-14.0); White Blood Count 6.1 K/mm3 (4.0-10.5)
[2021-03-13 21:50] LABS: INR 1.07 (0.8-3.0); PROTIME 12.6 SECONDS (9.4-12.5)
[2021-03-13 21:58] LABS: ALBUMIN 4.7 g/dL (3.5-5.0); ALKALINE PHOSPHATASE 67 U/L (38-126); AMYLASE 52 U/L (30-110); ANION GAP 18.3 MEQ/L (5-15); BLOOD UREA NITROGEN 20 mg/dL (9-20); CHLORIDE 110 mmol/L (98-107); Calcium 9.2 mg/dL (8.4-10.2); Carbon Dioxide 20 mmol/L (22-30); Creatinine 1 1.09 mg/dL (0.66-1.25); EST GLOMERULAR FILTRATION RATE > 60.0 ML/MIN; Glucose 120 mg/dL (74-106); LIPASE 62 U/L (23-300); NT PRO BNP 3300 pg/mL (0-450); Potassium 4.6 mmol/L (3.5-5.1); SGOT/AST 19 U/L (17-59); SGPT/ALT 12 U/L (0-50); SODIUM 144 mmol/L (137-145); Total Protein 7.6 g/dL (6.3-8.2)
[2021-03-13 22:03] LABS: D-DIMER QUANTITATIVE < 215 ng/mL (215-500)
--- NOTE | 2021-03-13 22:08 | ERPHSYRPT ---
- History of Present Illness Time Seen by Provider: 03/13/21 21:15 Historian: patient Exam Limitations: no limitations Patient Subjective Stated Complaint: pt states while at work he began having lt chest pain, nonradiating and was diaphoretic. states he was told that his heart rate was very high when checked out by medical Triage Nursing Assessment: pt alert and oriented, answers questions approp. pt arrive per ambulance and transfers to stretcher without difficulty. skin cool, diaphoretic. respirations nonlabored. heart rate 90's a fib. Physician History: Patient is a 50-year-old male with a long history of atrial fibrillation he had difficulty obtaining his medicine and stopped it about a year ago he at that time was on metoprolol and Eliquis for his atrial fib. Tonight he developed atrial fib with a rapid ventricular response was found by EMS to have a rate in the 1 45-1 80 range he was given 25 mg of Cardizem IV and did slow his rate significantly. He had been at work about 30 minutes when he developed chest pain got diaphoretic. Can now afford his medications. Timing/Duration: today, improved Activities at Onset: activity (Work) Quality: pressure, throbbing Location: substernal Chest Pain Radiation: no radiation Severity of Pain-Max: moderate Severity of Pain-Current: mild Associated Symptoms: shortness of breath, diaphoresis, weakness Nitro Today/Relief: no nitro taken today Aspirin Treatment Today: no aspirin today Allergies/Adverse Reactions: Penicillins Allergy (Verified 03/13/21 21:22) Hx Tetanus, Diphtheria Vaccination/Date Given: Yes Hx Influenza Vaccination/Date Given: No Hx Pneumococcal Vaccination/Date Given: No Immunizations Up to Date: Yes Travel Risk - International Travel Have you traveled outside of the country in past 3 weeks: No - Coronavirus Screening Are you exhibiting any of the following symptoms?: No Close contact with a COVID-19 positive Pt in past 14-21 Days: No - Vaccine Status Have you recieved a Covid-19 vaccination: No - Review of Systems Constitutional: No Fever, No Chills Eyes: No Symptoms Ears, Nose, & Throat: No Symptoms Respiratory: No Cough, No Dyspnea Cardiac: Palpitations, No Chest Pain, No Edema, No Syncope Abdominal/Gastrointestinal: No Abdominal Pain, No Nausea, No Vomiting, No Diarrhea Genitourinary Symptoms: No Dysuria Musculoskeletal: No Back Pain, No Neck Pain Skin: No Rash Neurological: No Dizziness, No Focal Weakness, No Sensory Changes Psychological: No Symptoms Endocrine: No Symptoms All Other Systems: Reviewed and Negative - Past Medical History Pertinent Past Medical History: Yes Cardiac History: Arrhythmia, High Cholesterol, Hypertension Other Medical History: afib - Past Surgical History Past Surgical History: Yes Gastrointestinal: Other Other Surgical History: gastric bypass - Social History Smoking Status: Former smoker Exposure to second hand smoke: No Drug Use: none Patient Lives Alone: No - Nursing Vital Signs Nursing Vital Signs: Initial Vital Signs Temperature 97.8 F 03/13/21 21:03 Pulse Rate 88 03/13/21 21:03 Respiratory Rate 16 03/13/21 21:03 Blood Pressure 117/94 03/13/21 21:03 O2 Sat by Pulse Oximetry 99 03/13/21 21:03 Pain Scale Pain Intensity 0 - Physical Exam General Appearance: mild distress, alert Eye Exam: PERRL/EOMI, eyes nml inspection Ears, Nose, Throat Exam: normal ENT inspection, moist mucous membranes Neck Exam: normal inspection, non-tender, supple, full range of motion Respiratory Exam: normal breath sounds, lungs clear, No respiratory distress Cardiovascular Exam: regular rate/rhythm, normal heart sounds Gastrointestinal/Abdomen Exam: soft, No tenderness, No mass Back Exam: normal inspection, No CVA tenderness, No vertebral tenderness Extremity Exam: normal inspection, normal range of motion Neurologic Exam: alert, oriented x 3, cooperative, normal mood/affect, sensation nml, No motor deficits Skin Exam: normal color, warm, dry SpO2 Interpretation: normal SpO2: 99 O2 Delivery: Room Air - Course Nursing assessment & vital signs reviewed: Yes EKG Interpreted by Me: RATE (90), A-fib, NORMAL AXIS, prolonged QT interval - Radiology Exams Chest X-ray Interpretation: Interpreted by me, Negative Ordered Tests: Active Orders 24 hr Category Date Time Status Creative Designer STAT Care 03/13/21 21:02 Active EKG-ER Only STAT Care 03/13/21 21:01 Active IV Insertion STAT Care 03/13/21 21:01 Active CHEST 1 VIEW (PORTABLE) Stat Exams 03/13/21 21:02 Taken AMYLASE Stat Lab 03/13/21 21:18 Completed CBC W DIFF Stat Lab 03/13/21 21:18 Completed CMP Stat Lab 07/05/21 21:18 Completed D-DIMER QUANTITATIVE Stat Lab 03/13/21 21:18 Completed LIPASE Stat Lab 03/13/21 21:18 Completed Lactic Acid Stat Lab 03/13/21 21:01 Completed NT PRO BNP Stat Lab 03/13/21 21:18 Completed PROTIME WITH INR Stat Lab 03/13/21 21:18 Completed TROPONIN Q3H Lab 03/13/21 21:18 Completed TROPONIN Q3H Lab 03/14/21 00:15 Ordered TROPONIN Q3H Lab 03/14/21 03:15 Ordered TROPONIN Q3H Lab 03/14/21 06:15 Ordered TROPONIN Q3H Lab 03/14/21 09:15 Ordered UA W/RFX UR CULTURE Stat Lab 03/13/21 21:02 Ordered Medication Summary Generic Name Dose Route Start Last Admin Trade Name Freq PRN Reason Stop Dose Admin Sodium Chloride 1,000 mls @ 100 mls/hr 03/13/21 21:15 03/13/21 21:19 Sodium Chloride 0.9% 1000 Ml IV 04/12/21 21:14 100 mls/hr .Q10H TAYA Administration Diltiazem HCl 100 mls @ 5 mls/hr 03/13/21 21:01 03/13/21 21:25 Cardizem Drip 100 Mg/100 Ml D5w IV 04/12/21 21:00 5 mg/hr .Q20H PRN 5 mls/hr HEART RATE/ A-FIB Administration Protocol 5 MG/HR Lab/Rad Data: Laboratory Result Diagrams 03/13/21 21:18 03/13/21 21:18 Laboratory Results 03/13/21 03/13/21 03/13/21 Range/Units 21:18 21:18 21:18 WBC (4.0-10.5) K/mm3 RBC (4.1-5.6) M/mm3 Hgb (12.5-18.0) gm/dl Hct (42-50) % MCV (78-100) fl MCH (26-32) pg MCHC (32-36) g/dl RDW (11.5-14.0) % Plt Count (150-450) K/mm3 MPV (7.5-11.0) fl Gran % (36.0-66.0) % Eos # (Auto) (0-0.5) Absolute Lymphs (auto) (1.0-4.6) Absolute Monos (auto) (0.0-1.3) Lymphocytes % (24.0-44.0) % Monocytes % (0.0-12.0) % Eosinophils % (0.00-5.0) % Basophils % (0.0-0.4) % Absolute Granulocytes (1.4-6.9) Basophils # (0-0.4) PT 12.6 H (9.4-12.5) SECONDS INR 1.07 (0.8-3.0) D-Dimer < 215 L (215-500) ng/mL Sodium 144 (137-145) mmol/L Potassium 4.6 (3.5-5.1) mmol/L Chloride 110 H (98-107) mmol/L Carbon Dioxide 20 L (22-30) mmol/L Anion Gap 18.3 H (5-15) MEQ/L BUN 20 (9-20) mg/dL Creatinine 1.09 (0.66-1.25) mg/dL Estimated GFR > 60.0 ML/MIN Glucose 120 H (74-106) mg/dL Lactic Acid (0.4-2.0) Calcium 9.2 (8.4-10.2) mg/dL Total Bilirubin 1.10 (0.2-1.3) mg/dL AST 19 (17-59) U/L ALT 12 (0-50) U/L Alkaline Phosphatase 67 (38-126) U/L Troponin I < 0.012 (0.000-0.034) ng/mL NT-Pro-B Natriuret Pep 3300 H (0-450) pg/mL Serum Total Protein 7.6 (6.3-8.2) g/dL Albumin 4.7 (3.5-5.0) g/dL Amylase 52 (30-110) U/L Lipase 62 (23-300) U/L 03/13/21 03/13/21 Range/Units 21:18 21:01 WBC 6.1 (4.0-10.5) K/mm3 RBC 4.59 (4.1-5.6) M/mm3 Hgb 9.4 L (12.5-18.0) gm/dl Hct 33.7 L (42-50) % MCV 73.4 L (78-100) fl MCH 20.5 L (26-32) pg MCHC 27.9 L (32-36) g/dl RDW 19.3 H (11.5-14.0) % Plt Count 325 (150-450) K/mm3 MPV 11.7 H (7.5-11.0) fl Gran % 57.8 (36.0-66.0) % Eos # (Auto) 0.08 (0-0.5) Absolute Lymphs (auto) 1.92 (1.0-4.6) Absolute Monos (auto) 0.54 (0.0-1.3) Lymphocytes % 31.5 (24.0-44.0) % Monocytes % 8.9 (0.0-12.0) % Eosinophils % 1.3 (0.00-5.0) % Basophils % 0.5 (0.0-0.4) % Absolute Granulocytes 3.52 (1.4-6.9) Basophils # 0.03 (0-0.4) PT (9.4-12.5) SECONDS INR (0.8-3.0) D-Dimer (215-500) ng/mL Sodium (137-145) mmol/L Potassium (3.5-5.1) mmol/L Chloride (98-107) mmol/L Carbon Dioxide (22-30) mmol/L Anion Gap (5-15) MEQ/L BUN (9-20) mg/dL Creatinine (0.66-1.25) mg/dL Estimated GFR ML/MIN Glucose (74-106) mg/dL Lactic Acid 1.9 (0.4-2.0) Calcium (8.4-10.2) mg/dL Total Bilirubin (0.2-1.3) mg/dL AST (17-59) U/L ALT (0-50) U/L Alkaline Phosphatase (38-126) U/L Troponin I (0.000-0.034) ng/mL NT-Pro-B Natriuret Pep (0-450) pg/mL Serum Total Protein (6.3-8.2) g/dL Albumin (3.5-5.0) g/dL Amylase (30-110) U/L Lipase (23-300) U/L - Progress Progress: improved Air Movement: good Blood Culture(s) Obtained: No Antibiotics given: No - Departure Departure Disposition: Home Clinical Impression: Chronic atrial fibrillation with rapid ventricular response, Anemia, Palpitation Condition: Stable Critical Care Time: Yes Critical Care Time(excluding separately billable procedures): Critical 30-74 mins Referrals: DEYANIRA OLIVERA [Primary Care Provider] - Instructions: Palpitations (DC) Prescriptions: Apixaban [Eliquis] 5 mg PO BID 30 Days #60 tablet Ferrous Sulfate 325 mg [Feosol 325 mg] 325 mg PO DAILY 30 Days #30 tablet Metoprolol Tartrate 50 mg [Lopressor 50 MG] 50 mg PO BID 30 Days #60 tablet
[2021-03-13] MEDS ORDERED: Lopressor 50 MG ONE ×2 (22:39→23:04)
[2021-03-13] MEDS ORDERED: ELIQUIS 2.5 MG TABLET ONE (22:41)
[2021-03-13 22:46] LABS: Slide Review 1 YES
[2021-03-13] MEDS ORDERED: ELIQUIS 2.5 MG TABLET PO ONE (22:50)
[2021-03-13 23:16] LABS: Appearance CLEAR (CLEAR); Bilirubin NEGATIVE (NEGATIVE); Blood NEGATIVE Ery/ul (0-5); Glucose NEGATIVE (NEGATIVE); Ketones NEGATIVE (NEGATIVE); Leukocyte Esterase NEGATIVE (NEGATIVE); Nitrite NEGATIVE (NEGATIVE); Protein,Urine Dip NEGATIVE (Negative); Specific Gravity 1.024 (1.005-1.025); Urobilinogen NEGATIVE mg/dL (0-1)
[2021-03-13 23:45] VITALS: BP 106/82; PULSE 84
--- NOTE | 2021-03-14 09:15 | XRAY ---
Indication: Pain. Comparison: August 26, 2019. Portable apical lordotic chest remains clear. Heart is now borderline enlarged. Bony thorax intact. Impression: Borderline cardiomegaly. Negative for acute pneumonic process or CHF.
[2021-03-14] MEDS ORDERED: Lopressor 50 MG PO SCH (10:00)
[2021-03-14] MEDS ORDERED: Lopressor 50 MG PO ONE (22:50)
== END 2021-03-13 23:44 | disposition home or self-care (01) ==
LOC: ED 20:58
DX: I48.20 Chronic atrial fibrillation, unspecified (principal); D64.9 Anemia, unspecified; R00.2 Palpitations
CPT/HCPCS: 36000; 36415; 71045; 80053; 81001; 82150; 83605; 83690; 83880; 84484; 85025; 85379; 85610; 93005; 93041; 96365; 99284; 99291; A9270-GY

== ENCOUNTER 2023-06-29 04:32 | Emergency (ER) | payer MEDICAID, OTHER ==
[2023-06-29] MEDS ORDERED: BABY ASPIRIN 81 MG CHEW PO ONE (04:37)
[2023-06-29 04:55] LABS: Absolute Neutrophil Ct (ANC) 2.99 x10^3/uL (1.4-6.9); BASOPHIL % 0.7 % (0.0-0.4); Basophil (Absolute #) 0.05 x10^3/uL (0-0.4); Eosinophil % 2.6 % (0.00-5.0); Eosinophil (Absolute #) 0.18 x10^3/uL (0-0.5); Hematocrit 47.4 % (42-50); Hemoglobin 15.5 g/dL (12.5-18.0); IMMATURE GRAN # 0.02 x10^3u/L (0.00-0.03); IMMATURE GRAN % 0.3 % (0.00-0.4); Lymphocytes % 47.1 % (24.0-44.0); Mean Cell Volume 100.4 fL (78-100); Mean Corpuscular Hemoglobin 32.8 pg (26-32); Mean Corpuscular Hgb Concent. 32.7 g/dL (32-36); Mean Platelet Volume 11.6 fL (7.5-11.0); Monocyte (Absolute #) 0.47 x10^3/uL (0.0-1.3); Monocytes % 6.7 % (0.0-12.0); Neutrophil % 42.6 % (36.0-66.0); Platelet Count 290 x10^3/uL (150-450); Red Blood Count 4.72 x10^6/uL (4.1-5.6); Red Cell Distribution Width 12.3 % (11.5-14.0)
[2023-06-29 04:56] VITALS: TEMP 95.6
[2023-06-29] MEDS ORDERED: Sodium Chloride 0.9% 1000 ML 1,000 ML IV STA ×2 (04:58→06:04)
[2023-06-29] MEDS ORDERED: Sodium Chloride 0.9% 1000 ML 1,000 ML ONE ×2 (04:58→06:10)
[2023-06-29 05:11] LABS: D-DIMER QUANTITATIVE < 0.19 mg/L (0.0-0.50); INR 1.09 (0.8-3.0); PROTIME 11.8 SECONDS (9.4-12.5)
[2023-06-29 05:12] LABS: ALBUMIN 4.4 g/dL (3.5-5.0); ALKALINE PHOSPHATASE 93 U/L (38-126); ANION GAP 16.4 MEQ/L (5-15); BLOOD UREA NITROGEN 18 mg/dL (9-20); CHLORIDE 104 mmol/L (98-107); Carbon Dioxide 22 mmol/L (22-30); Creatinine 1 1.08 mg/dL (0.66-1.25); EST GLOMERULAR FILTRATION RATE > 60.0 ML/MIN; Glucose 133 mg/dL (74-106); Potassium 3.7 mmol/L (3.5-5.1); SGOT/AST 25 U/L (17-59); SGPT/ALT 18 U/L (0-50); SODIUM 139 mmol/L (137-145); Total Protein 7.3 g/dL (6.3-8.2)
--- NOTE | 2023-06-29 05:41 | ERPHSYRPT ---
- History of Present Illness Time Seen by Provider: 06/29/23 04:35 Historian: patient, police Exam Limitations: no limitations Patient Subjective Stated Complaint: pt he woke up with chest pain Triage Nursing Assessment: pt ambulated into the er; pt is axo x4; c/o chest pain; pt denies chest pain at time of arrival; pt states low blood pressure; hypotensive; skin is pale, cool, clammy; blood sugar on arrival was 109; c/o lightheadedness; clear apical heart tone; clear lung sounds in all lobes; no respiratory distress present; strong rashaun radial pulses; strong rashaun pedal pulses; no edema present Physician History: This is a 52-year-old white male patient who has a history of hypertension and has a history of dvt in the past and woke up at 4:00 this morning with a small localized area of chest pain in the left anterior chest which resolved before he arrived to the emergency department. Patient was brought to the emergency department by paramedics from the retirement. I received additional, independent history from the mechanical engineering officer and paramedics. Patient is on Xarelto and metoprolol. Patient's systolic blood pressures in the 80s. He felt dizzy when he woke up as well. Patient has been receiving his medication. Patient arrives to the emergency department with no chest pain, no shortness of breath, no fev er, no cough, no abdominal pain, no nausea vomiting or diarrhea symptoms Timing/Duration: today Activities at Onset: none Quality: dullness (Localized left anterior chest wall) Location: other (Left anterior chest wall) Chest Pain Radiation: no radiation Severity of Pain-Max: mild Severity of Pain-Current: none Associated Symptoms: dizziness (He woke up), No abdominal pain, No shortness of breath, No diaphoresis Nitro Today/Relief: no nitro taken today Aspirin Treatment Today: 81 mg x 4, provided by ED Allergies/Adverse Reactions: Penicillins Allergy (Verified 06/29/23 04:36) Anaphylactic Reaction Home Medications: Dapagliflozin Propanediol [Farxiga] 10 mg PO DAILY 06/29/23 [History] Metoprolol Tartrate 50 mg [Lopressor 50 MG] 25 mg PO BID 06/29/23 [History] Rivaroxaban [Xarelto] 20 mg PO HS 06/29/23 [History] Sacubitril/Valsartan [Entresto 24 mg-26 mg Tablet] 1 each PO BID 06/29/23 [History] Hx Tetanus, Diphtheria Vaccination/Date Given: No Hx Influenza Vaccination/Date Given: No Hx Pneumococcal Vaccination/Date Given: No Travel Risk - International Travel Have you traveled outside of the country in past 3 weeks: No - Coronavirus Screening Are you exhibiting any of the following symptoms?: No Close contact with a COVID-19 positive Pt in past 14-21 Days: No - Vaccine Status Have you recieved a Covid-19 vaccination: Yes [facility]idential [facility] Worker: Moderna - Vaccination Dates Date of 2cond Vaccination (if applicable): 2020 - Review of Systems Constitutional: No Symptoms Eyes: No Symptoms Ears, Nose, & Throat: No Symptoms Respiratory: No Symptoms Cardiac: Chest Pain Abdominal/Gastrointestinal: No Symptoms Genitourinary Symptoms: No Symptoms Musculoskeletal: No Symptoms Skin: No Symptoms Neurological: No Symptoms Psychological: No Symptoms Endocrine: No Symptoms Hematologic/Lymphatic: No Symptoms Immunological/Allergic: No Symptoms All Other Systems: Reviewed and Negative - Past Medical History Pertinent Past Medical History: Yes Cardiac History: Arrhythmia, Deep Vein Thrombosis, High Cholesterol, Hypertens ion Other Medical History: afib, 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 - Past Surgical History Past Surgical History: Yes Gastrointestinal: Other Other Surgical History: gastric bypass - Social History Smoking Status: Former smoker Exposure to second hand smoke: No Drug Use: none Patient Lives Alone: No - Nursing Vital Signs Nursing Vital Signs: Initial Vital Signs Temperature 95.6 F 06/29/23 04:32 Pulse Rate 80 06/29/23 04:32 Respiratory Rate 20 06/29/23 04:32 Blood Pressure 82/51 06/29/23 04:32 O2 Sat by Pulse Oximetry 99 06/29/23 04:32 Pain Scale Pain Intensity 0 - Physical Exam General Appearance: no apparent distress, alert, anxiety, thin Eye Exam: PERRL/EOMI, eyes nml inspection Ears, Nose, Throat Exam: normal ENT inspection, moist mucous membranes Neck Exam: normal inspection, non-tender, supple, full range of motion Respiratory Exam: normal breath sounds, lungs clear, airway intact, No chest tenderness, No respiratory distress Cardiovascular Exam: regular rate/rhythm, normal heart sounds, normal peripheral pulses Gastrointestinal/Abdomen Exam: soft, normal bowel sounds, No tenderness Rectal Exam: not done Back Exam: normal inspection, normal range of motion, No CVA tenderness, No vertebral tenderness Extremity Exam: normal inspection, normal range of motion, pelvis stable Neurologic Exam: alert, oriented x 3, cooperative, speech and language specialist II-XII nml as tested, normal mood/affect, nml cerebellar function, nml station & gait, sensation nml Skin Exam: normal color, warm, dry Lymphatic Exam: No adenopathy SpO2 Interpretation: normal SpO2: 99 O2 Delivery: Room Air - Course Nursing assessment & vital signs reviewed: Yes EKG Interpreted by Me: RATE (76), Sinus Rhythm, NORMAL AXIS, NORMAL INTERVALS, NORMAL QRS, Other (No acute ischemic changes on today's twelve-lead EKG.) Ordered Tests: Active Orders 24 hr Category Date Time Status Regional Planner STAT Care 06/29/23 04:38 Active EKG-ER Only STAT Care 06/29/23 04:37 Active IV Insertion STAT Care 06/29/23 04:37 Active Pulse Oximetry (ED) STAT Care 06/29/23 04:37 Active CHEST 1 VIEW (PORTABLE) Stat Exams 06/29/23 04:38 Taken CBC W DIFF Stat Lab 06/29/23 04:52 Completed CMP Stat Lab 06/29/23 04:52 Completed D-DIMER QUANTITATIVE Stat Lab 06/29/23 04:52 Completed POCT GLUCOSE Stat Lab 06/29/23 04:43 Completed PROTIME WITH INR Stat Lab 06/29/23 04:52 Completed TROPONIN Q4H Lab 06/29/23 04:52 Completed TROPONIN Q4H Lab 06/29/23 08:45 Ordered TROPONIN Q4H Lab 06/29/23 12:45 Ordered UA W/RFX UR CULTURE Stat Lab 06/29/23 05:44 Ordered Urine Triage Profile Stat Lab 06/29/23 05:44 Ordered Medication Summary Discontinued Medications Generic Name Dose Route Start Last Admin Trade Name Freq PRN Reason Stop Dose Admin Aspirin 324 mg 06/29/23 04:37 06/29/23 04:55 Aspirin 81 Mg Tab.Chew PO 06/29/23 04:38 324 mg STAT ONE Administration Sodium Chloride 1,000 mls @ 999 mls/hr 06/29/23 04:58 06/29/23 06:18 Sodium Chloride 0.9% 1000 Ml IV 06/29/23 05:58 Infused .Q1H1M STA Infusion Sodium Chloride Confirm 06/29/23 04:58 Sodium Chloride 0.9% 1000 Ml Administered 06/29/23 04:59 Dose 1,000 mls @ ud .ROUTE .STK-MED ONE Sodium Chloride 1,000 mls @ 999 mls/hr 06/29/23 06:04 06/29/23 06:11 Sodium Chloride 0.9% 1000 Ml IV 06/29/23 07:04 999 mls/hr .Q1H1M STA Administration Sodium Chloride Confirm 06/29/23 06:10 Sodium Chloride 0.9% 1000 Ml Administered 06/29/23 06:11 Dose 1,000 mls @ ud .ROUTE .STK-MED ONE Lab/Rad Data: Laboratory Result Diagrams 06/29/23 04:52 06/29/23 04:52 Laboratory Results 06/29/23 06/29/23 06/29/23 Range/Units 04:52 04:52 04:52 WBC (4.0-10.5) x10^3/uL RBC (4.1-5.6) x10^6/uL Hgb (12.5-18.0) g/dL Hct (42-50) % MCV (78-100) fL MCH (26-32) pg MCHC (32-36) g/dL RDW (11.5-14.0) % Plt Count (150-450) x10^3/uL MPV (7.5-11.0) fL Gran % (36.0-66.0) % Immature Gran % (Auto) (0.00-0.4) % Nucleat RBC Rel Count (0.00-0.1) % Eos # (Auto) (0-0.5) x10^3/uL Immature Gran # (Auto) (0.00-0.03) x10^3u/L Absolute Lymphs (auto) (1.0-4.6) x10^3/uL Absolute Monos (auto) (0.0-1.3) x10^3/uL Absolute Nucleated RBC (0.00-0.01) x10^3u/L Lymphocytes % (24.0-44.0) % Monocytes % (0.0-12.0) % Eosinophils % (0.00-5.0) % Basophils % (0.0-0.4) % Absolute Granulocytes (1.4-6.9) x10^3/uL Basophils # (0-0.4) x10^3/uL PT 11.8 (9.4-12.5) SECONDS INR 1.09 (0.8-3.0) D-Dimer < 0.19 (0.0-0.50) mg/L Sodium 139 (137-145) mmol/L Potassium 3.7 (3.5-5.1) mmol/L Chloride 104 (98-107) mmol/L Carbon Dioxide 22 (22-30) mmol/L Anion Gap 16.4 H (5-15) MEQ/L BUN 18 (9-20) mg/dL Creatinine 1.08 (0.66-1.25) mg/dL Estimated GFR > 60.0 ML/MIN Glucose 133 H (74-106) mg/dL POC Glucometer (74 to 106) mg/dL Calcium 9.0 (8.4-10.2) mg/dL Total Bilirubin 1.10 (0.2-1.3) mg/dL AST 25 (17-59) U/L ALT 18 (0-50) U/L Alkaline Phosphatase 93 (38-126) U/L Troponin I 0.014 (0.000-0.034) ng/mL Serum Total Protein 7.3 (6.3-8.2) g/dL Albumin 4.4 (3.5-5.0) g/dL 06/29/23 06/29/23 Range/Units 04:52 04:43 WBC 7.0 (4.0-10.5) x10^3/uL RBC 4.72 (4.1-5.6) x10^6/uL Hgb 15.5 (12.5-18.0) g/dL Hct 47.4 (42-50) % MCV 100.4 H (78-100) fL MCH 32.8 H (26-32) pg MCHC 32.7 (32-36) g/dL RDW 12.3 (11.5-14.0) % Plt Count 290 (150-450) x10^3/uL MPV 11.6 H (7.5-11.0) fL Gran % 42.6 (36.0-66.0) % Immature Gran % (Auto) 0.3 (0.00-0.4) % Nucleat RBC Rel Count 0.0 (0.00-0.1) % Eos # (Auto) 0.18 (0-0.5) x10^3/uL Immature Gran # (Auto) 0.02 (0.00-0.03) x10^3u/L Absolute Lymphs (auto) 3.30 (1.0-4.6) x10^3/uL Absolute Monos (auto) 0.47 (0.0-1.3) x10^3/uL Absolute Nucleated RBC 0.00 (0.00-0.01) x10^3u/L Lymphocytes % 47.1 H (24.0-44.0) % Monocytes % 6.7 (0.0-12.0) % Eosinophils % 2.6 (0.00-5.0) % Basophils % 0.7 (0.0-0.4) % Absolute Granulocytes 2.99 (1.4-6.9) x10^3/uL Basophils # 0.05 (0-0.4) x10^3/uL PT (9.4-12.5) SECONDS INR (0.8-3.0) D-Dimer (0.0-0.50) mg/L Sodium (137-145) mmol/L Potassium (3.5-5.1) mmol/L Chloride (98-107) mmol/L Carbon Dioxide (22-30) mmol/L Anion Gap (5-15) MEQ/L BUN (9-20) mg/dL Creatinine (0.66-1.25) mg/dL Estimated GFR ML/MIN Glucose (74-106) mg/dL POC Glucometer 109 H (74 to 106) mg/dL Calcium (8.4-10.2) mg/dL Total Bilirubin (0.2-1.3) mg/dL AST (17-59) U/L ALT (0-50) U/L Alkaline Phosphatase (38-126) U/L Troponin I (0.000-0.034) ng/mL Serum Total Protein (6.3-8.2) g/dL Albumin (3.5-5.0) g/dL - Progress Progress: improved, re-examined Air Movement: good Progress Note: 06/29/23 05:40 This patient's medical issue is 1 of moderate complexity. Level of complexity in the work-up performed is based on review of the patient's past medical history, review the patient's medication list, reviewed patient's drug allergy list, history of present illness, and physical findings on examination. The work-up in this patient includes intravenous line patient, infusion of 1 L normal saline solution, chest x-ray, CBC, CMP, troponin level, twelve-lead EKG, urinalysis and urine drug screen. The chest x-ray was interpreted by me. There is no evidence of any acute cardiopulmonary process. 06/29/23 05:43 06/29/23 06:05 The patient was reexamined. His blood pressure is slowly rising with fluid infusion. Once the systolic blood pressures greater than 100 we will allow him to be discharged back to retirement. We are also awaiting urinalysis and urine drug screen. However we have yet to retrieve the specimen. 06/29/23 07:08 Patient's systolic blood pressure is now 98. We will use the remaining 500 mL of normal saline solution and allow him to be discharged to home. Blood Culture(s) Obtained: No Antibiotics given: No Counseled pt/family regarding: lab results, diagnosis, rad results Medical Desision Making - Independent Historian Additional History obtained from: Battery Vent Plug Inserter/EMT (And mechanical engineering officer) - Diagnostic Testing Diagnostic test were ordered, analyzed, and reviewed by me: Yes Radiological Interpretation: Interpreted by me - Risk of complications Low Risk: Low risk of morbidity from additional dx testing or treatment - Departure Departure Disposition: [facility]/Assisted Clinical Impression: Nonspecific chest pain, Hypotension Condition: Stable Critical Care Time: No Referrals: DEYANIRA OLIVERA MD [Primary Care Provider] - Follow up/PCP as directed Additional Instructions: Hold your morning blood pressure medication. Drink plenty of fluids. Began your blood pressure medication 06/30/2023.
[2023-06-29 07:37] VITALS: BP 93/61; PULSE 51; RESP 20; O2SAT 98
--- NOTE | 2023-06-29 08:12 | XRAY ---
Indication: Chest pain. Comparison: March 13, 2021 Portable chest remains inflated and clear. Heart not enlarged. New small hiatal hernia. Bony thorax intact again with osteopenia and mild degenerative changes.
== END 2023-06-29 07:39 | disposition home or self-care (01) ==
LOC: ED 04:32 → EEVIPCON 04:32 → ED 07:39
DX: I95.9 Hypotension, unspecified (principal); R07.89 Other chest pain; R42 Dizziness and giddiness; E78.5 Hyperlipidemia, unspecified; I10 Essential (primary) hypertension; Z79.01 Long term (current) use of anticoagulants; Z79.899 Other long term (current) drug therapy
CPT/HCPCS: 36000; 36415; 71045; 80053; 82947; 84484; 85025; 85379; 85610; 93005; 93041; 94760; 96360; 99284; A9270-GY

== ENCOUNTER 2024-05-29 15:45 | Emergency (ER) | payer OTHER ==
[2024-05-29 16:00] VITALS: RESP 16; TEMP 97.2; O2SAT 97
--- NOTE | 2024-05-29 17:20 | ERPHSYRPT ---
- History of Present Illness Time Seen by Provider: 05/29/24 17:07 Source: patient Exam Limitations: no limitations Patient Subjective Stated Complaint: PT HERE FOR BILAT WRIST PAIN, HE STATES HE WAS MOVING A COUCH AND IT DROPPED CAUSING HIM FALL, NOW CO PAIN TO BOTH WRISTS, Triage Nursing Assessment: PT ALERT, WALKED IN, RESP EASY, SKIN W.D.P HAS SWELLING TO BOTH WRIST, ICE APPLIED Physician History: Pt states today he was moving a couch at work in someone's residence and he fell catching himself with both hands and complains of bilateral hand and wrist pain; denies other injuries. Allergies/Adverse Reactions: Penicillins Allergy (Verified 05/29/24 16:03) Anaphylactic Reaction Home Medications: Dapagliflozin Propanediol [Farxiga] 10 mg PO DAILY 06/29/23 [History] Metoprolol Tartrate 50 mg [Lopressor 50 MG] 25 mg PO BID 06/29/23 [History] Rivaroxaban [Xarelto] 20 mg PO HS 06/29/23 [History] Sacubitril/Valsartan [Entresto 24 mg-26 mg Tablet] 1 each PO BID 06/29/23 [History] Hx Tetanus, Diphtheria Vaccination/Date Given: No Hx Influenza Vaccination/Date Given: No Hx Pneumococcal Vaccination/Date Given: No Immunizations Up to Date: Yes Travel Risk - International Travel Have you traveled outside of the country in past 3 weeks: No - Emerging Infectious Disease Are you exhibiting symptoms associated with any current EIDs: No - Review of Systems Musculoskeletal: Other (bilateral wrist/hand pain) Neurological: No Sensory Changes - Past Medical History Pertinent Past Medical History: Yes Cardiac History: Arrhythmia, Deep Vein Thrombosis, High Cholesterol, Hypertension Other Medical History: afib, 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 - Past Surgical History Past Surgical History: Yes Gastrointestinal: Other Other Surgical History: gastric bypass - Social History Smoking Status: Former smoker Exposure to second hand smoke: No Drug Use: none Patient Lives Alone: No - Social Determinants of Health Will the patient participate in the screening: Declined to provide - Nursing Vital Signs Nursing Vital Signs: Initial Vital Signs Temperature 97.2 F 05/29/24 15:58 Pulse Rate 75 05/29/24 15:58 Respiratory Rate 16 05/29/24 15:58 Blood Pressure 143/84 05/29/24 15:58 O2 Sat by Pulse Oximetry 97 05/29/24 15:58 Pain Scale Pain Intensity 6 - Physical Exam General Appearance: alert Shoulder Exam: normal ROM Elbow/Forearm Exam: normal ROM Wrist Exam: soft tissue tenderness (moderate tenderness with mild edema and decreased rom) Hand Exam: soft tissue tenderness (mild tenderness with decreased rom and mild proximal edema) Neuro/Tendon Exam: normal sensation Mental Status Exam: alert, cooperative Skin Exam: warm, dry SpO2 Interpretation: normal SpO2: 97 O2 Delivery: Room Air Procedures - Splinting Location of Splint: Left, Right, Wrist Type of Splint: Orthoglass Short Arm Splint Splint Applied By: Other (ER EMT) Pre-Proc Neuro Vasc Exam: normal Post-Proc Neuro Vasc Exam: neurovascular intact - Course Nursing assessment & vital signs reviewed: Yes - Radiology Exams Left Hand X-ray Interpretation: Interpreted by me (fx distal radius) Right Hand X-ray Interpretation: Interpreted by me (fx distal radius) Left Wrist X-ray Interpretation: Interpreted by me (fx distal radius) Right Wrist X-ray Interpretation: Interpreted by me (fx distal radius) Ordered Tests: Active Orders 24 hr Category Date Time Status HAND (MINIMUM 3 VIEWS) Stat Exams 05/29/24 17:17 Completed HAND (MINIMUM 3 VIEWS) Stat Exams 05/29/24 17:18 Completed WRIST (MIN 3 VIEWS) Stat Exams 05/29/24 17:04 Completed WRIST (MIN 3 VIEWS) Stat Exams 05/29/24 17:04 Completed Medication Summary Discontinued Medications Generic Name Dose Route Start Last Admin Trade Name Montrell PRN Reason Stop Dose Admin Hydrocodone Bitart/Acetaminophen 2 tab 05/29/24 17:19 05/29/24 17:24 Hydrocodone/Apap 5/325 1 Tab Tablet PO 05/29/24 17:20 2 tab STAT ONE Administration Hydrocodone Bitart/Acetaminophen Confirm 05/29/24 17:22 Hydrocodone/Apap 5/325 1 Tab Tablet Administered 05/29/24 17:23 Dose 2 tab .ROUTE .STK-MED ONE - Progress Progress: unchanged Discussed with : Other (Spoke with Dr. Phelan(~ 1930) who advised placing both wrists in an ocl splint and call his office on Saturday06/01/24 for an ap pointment.) Counseled pt/family regarding: diagnosis, need for follow-up, rad results Medical Desision Making - Diagnostic Testing Diagnostic test were ordered, analyzed, and reviewed by me: Yes Radiological Interpretation: Interpreted by me - Departure Departure Disposition: Home Clinical Impression: Bilateral distal radius fractures Condition: Stable Critical Care Time: No Referrals: DEYANIRA OLIVERA MD [Primary Care Provider] - Follow up/PCP as directed Instructions: Wrist fracture Additional Instructions: Elevate both wrists 12 inches above heart level for the next 3 days. Keep both wrists in splints until Dr. Phelan is seen on Saturday06/01/24. Call Dr. Phelan's office Saturday06/01/24 morning for an appointment for Saturday06/01/24. . Rx written for [place] 7.5 mg tabs, # 20, take one every 4 hours as needed for pain. Forms: Work/School Release Form
[2024-05-29] MEDS ORDERED: NORCO 5/325 MG ONE (17:22)
[2024-05-29] MEDS: NORCO 5/325 MG PO ONE (17:24)
[2024-05-29 19:21] VITALS: PULSE 70
--- NOTE | 2024-05-29 19:26 | XRAY ---
Indication: Pain and swelling following fall. Comparison: None 3 view right wrist demonstrates nondisplaced comminuted fracture distal metadiaphysis radius with soft tissue swelling. No other bony, articular, or soft tissue abnormalities.
--- NOTE | 2024-05-29 19:26 | XRAY ---
Indication: Pain and swelling following fall. Comparison: None 3 view left wrist demonstrates slightly impacted fracture distal metadiaphysis radius with minimal angulation and soft tissue swelling. No other bony, articular, or soft tissue abnormalities.
--- NOTE | 2024-05-29 19:28 | XRAY ---
Indication: Pain and swelling following fall. Comparison: None 3 view right hand demonstrates old distal 5th metacarpal fracture. Distal radius fracture reported separately. No other bony, articular, or soft tissue abnormalities.
--- NOTE | 2024-05-29 19:28 | XRAY ---
Indication: Pain and swelling following fall. Comparison: None 3 view left hand demonstrates distal radius fracture reported separately. No other bony, articular, or soft tissue abnormalities.
[2024-05-29 20:05] VITALS: BP 126/98
== END 2024-05-29 20:32 | disposition home or self-care (01) ==
LOC: ED 15:45
DX: S52.501A Unspecified fracture of the lower end of right radius, initial encounter for closed fracture (principal); S52.502A Unspecified fracture of the lower end of left radius, initial encounter for closed fracture; M25.532 Pain in left wrist; M25.531 Pain in right wrist; M79.642 Pain in left hand; M79.641 Pain in right hand; X50.0XXA Overexertion from strenuous movement or load, initial encounter
CPT/HCPCS: 73110; 73130; 99284; A9270-GY